=== PATIENT | female | born 1955 | race African-American/Black ===

== ENCOUNTER 2017-05-23 13:15 | Emergency (ER) | payer MEDICARE, MEDICAID ==
[~2017-05-23] VITALS: Ht 167.6 cm; Wt 110.0 kg
[~2017-05-23 13:15] MED LIST: ALBU05 IH; ALLO100T PO; ASA; ASPI-1158 PO; CA; CA C1TAB92 PO; CARI350T PO; CARISOPRODOL; FURO-152 PO; LASIX; LISI40TA4 PO; LISINOPRIL; MED4 GT; METO-385 PO; METOPOROL; OMEP20CA10 PO; OMEPRAZOLE
[2017-05-23] MEDS ORDERED: ACETAMINOPHEN 325MG TABLET PO STA (16:52)
[2017-05-23 17:24] LABS: BASOPHILS % 0.6 % (0.0-2.0); EOSINOPHILS % 1.1 % (0.0-5.0); HEMATOCRIT. 41.3 % (36.0-48.0); HEMOGLOBIN. 13.7 g/dL (12.0-16.0); LYMPHOCYTES % 32.2 % (20.0-50.0); MEAN CORPUSCULAR HEMOGLOBIN 28.8 pg (28.0-32.0); MEAN CORPUSCULAR VOLUME 86.9 fL (81.0-99.0); MEAN PLATELET VOLUME 8.8 fl (7.4-10.4); MONOCYTES % 10.7 % (2.0-8.0); NEUTROPHILS % 55.4 % (40.0-76.0); PLATELET 201 x1000/uL (130-400); RED BLOOD CELL COUNT 4.75 mill/uL (4.2-5.4); RED CELL DISTRIBUTION WIDTH 15.2 % (11.6-14.6)
[2017-05-23 17:28] LABS: CHLORIDE 103 mEq/L (98-107)
[2017-05-23 17:34] LABS: PROTHROMBIN TIME 10.7 sec (9.4-11.6)
[2017-05-23 17:36] LABS: CARBON DIOXIDE 26 mEq/L (21-32)
[2017-05-23 18:05] LABS: CLARITY URINE CLEAR (CLEAR); COLOR URINE YELLOW (YELLOW); KETONES URINE TRACE (NEGATIVE); LEUKOCYTE ESTERASE URINE NEGATIVE (NEGATIVE); NITRITE URINE NEGATIVE (NEGATIVE); OCCULT BLOOD URINE NEGATIVE (NEGATIVE); PROTEIN URINE NEGATIVE (NEGATIVE); SPECIFIC GRAVITY URINE 1.014 (1.005-1.030); UROBILINOGEN URINE 0.2 E.U./dL (0.2-1.0)
[2017-05-23 22:58] LABS: AMMONIA 26 uMol/L (<32)
[2017-05-23 23:09] LABS: *AMPHETAMINES SCREEN URINE NEGATIVE (NEGATIVE); *BARBITURATES SCREEN URINE NEGATIVE (NEGATIVE); *BENZODIAZEPINES SCREEN URINE NEGATIVE (NEGATIVE); *COCAINE SCREEN URINE NEGATIVE (NEGATIVE); CANNABINOID URINE SCREEN PRESUMTIVE POSITIVE (NEGATIVE); METHADONE URINE SCREEN NEGATIVE (NEGATIVE); OPIATES URINE SCREEN NEGATIVE (NEGATIVE); PHENCYCLIDINE URINE SCREEN NEGATIVE (NEGATIVE)
[2017-05-23] MEDS ORDERED: IBUPROFEN 400MG TABLET PO ONE (23:45)
[2017-05-24] MEDS ORDERED: LORAZEPAM 2MG/ML CPJ IM SCH (00:30)
[2017-05-24 02:24] VITALS: BP 147/75
== END 2017-05-24 03:31 | disposition home or self-care (01) ==
LOC: ER 15:04
DX: M25.561 Pain in right knee (principal); R26.2 Difficulty in walking, not elsewhere classified; R41.82 Altered mental status, unspecified; R51 Headache; E11.9 Type 2 diabetes mellitus without complications; I10 Essential (primary) hypertension; E78.00 Pure hypercholesterolemia, unspecified; J45.909 Unspecified asthma, uncomplicated; Z79.82 Long term (current) use of aspirin; Z85.3 Personal history of malignant neoplasm of breast
CPT/HCPCS: 36415; 70450; 73562; 80053; 80305; 81003; 82140; 85025; 85610; 99285; G0482; J2060